=== PATIENT | male | born 1950 | race Caucasian/White ===

== ENCOUNTER 2018-10-18 11:15 | Outpatient (CLI) | payer MEDICARE ==
--- NOTE | 2018-10-18 12:21 | RAD ---
2 VIEWS CHEST: Date: 10/18/18 COMPARISON: 11/29/06. HISTORY: Cough. FINDINGS: Slight elongation of the aorta. Normal cardiac silhouette. Pulmonary vessels are prominent. Patchy in terstitial opacities, without consolidation or mass. No pneumothorax or osseous abnormality. IMPRESSION: Cardiomegaly, pulmonary vascular prominence, and interstitial edema. Congestive heart failure. POS: [facility]
== END 2018-10-18 11:16 | disposition home or self-care (01) ==
LOC: NAV RAD 11:15
PROVIDERS: ATTEND Family Medicine
DX: R05 Cough (principal); I50.9 Heart failure, unspecified; I51.7 Cardiomegaly; J81.1 Chronic pulmonary edema
CPT/HCPCS: 71046